=== PATIENT | female | born 1975 | race Caucasian/White ===

== ENCOUNTER 2017-09-27 21:54 | Emergency (ER) | payer SELFPAY ==
[~2017-09-27] VITALS: Ht 162.5 cm; Wt 136.1 kg
[~2017-09-27 21:54] MED LIST: CELEXA40 MG PO; MEDROL DOSEPAK4 MG PO; ZITHROMAX Z PA250 MG PO
[2017-09-27] MEDS ORDERED: VISTARIL25 MG PO (22:02)
[2017-09-27 23:14] LABS: HEMATOCRIT 21.7 % (37.0-47.0); MEAN CELL VOLUME 77.2 fl (81.0-99.0); MEAN CORPUSCULAR HGB CONC 27.2 g/dl (33.0-37.0); MEAN PLATELET VOLUME 10.8 fl (9.6-12.3); NUCLEATED RED BLOOD CELL 0.2 % (0.0-0.0); PLATELET COUNT AUTOMATED 324 10*3/uL (130-400); RED BLOOD COUNT 2.81 10*6/uL (4.10-5.10); RED CELL DISTRI WIDTH 17.8 % (0-14.5); WHITE BLOOD COUNT 9.2 10*3/uL (4.8-10.8)
[2017-09-27 23:27] LABS: ALBUMIN 2.9 gm/dl (3.1-4.5); ALKALINE PHOSPHATASE 98 U/L (45-117); BUN 12 mg/dl (7-24); CHLORIDE 106 mmol/L (98-107); CREATININE 0.84 mg/dL (0.55-1.02); POTASSIUM 3.5 mmol/L (3.5-5.1); SGOT/AST 14 IU/L (3-35); SGPT/ALT 21 U/L (12-78); SODIUM 141 mmol/L (136-145); TOTAL PROTEIN 6.8 gm/dL (6.4-8.2)
[2017-09-27 23:49] LABS: BASOPHILS 1 % (0-1); TOTAL CELLS COUNTED 100 #CELLS
[2017-09-27 23:50] LABS: MICROCYTOSIS SLIGHT; POLYCHROMASIA SLIGHT
[2017-09-27 23:51] LABS: PLATELET SUFFICIENCY NORMAL (NORMAL)
[2017-09-27 23:52] LABS: HEMOGLOBIN 5.9 g/dl (12.0-16.0)
== END 2017-09-28 03:44 | disposition short-term general hospital (02) ==
LOC: ED 21:54
PROVIDERS: Nurse Practitioner Family
DX: N93.9 Abnormal uterine and vaginal bleeding, unspecified (principal); D64.9 Anemia, unspecified; Z88.0 Allergy status to penicillin; Z88.8 Allergy status to other drugs, medicaments and biological substances; Z91.040 Latex allergy status; Z79.899 Other long term (current) drug therapy